=== PATIENT | female | born 1985 | race African-American/Black ===

== ENCOUNTER 2017-06-03 12:38 | Emergency (ER) | payer MEDICAID ==
[~2017-06-03] VITALS: Ht 162.6 cm; Wt 55.0 kg
[2017-06-03 12:41] VITALS: BP 114/63
[2017-06-03] MEDS ORDERED: ACETAMINOPHEN 325MG TABLET PO ONE (14:30)
== END 2017-06-03 15:50 | disposition home or self-care (01) ==
LOC: ER 13:26
DX: M79.674 Pain in right toe(s) (principal); M79.89 Other specified soft tissue disorders; J45.909 Unspecified asthma, uncomplicated; F12.10 Cannabis abuse, uncomplicated
CPT/HCPCS: 73660; 81025; 99284

== ENCOUNTER 2018-02-02 21:49 | Emergency (ER) | payer MEDICAID, OTHER ==
[~2018-02-02] VITALS: Ht 162.6 cm; Wt 57.0 kg
[2018-02-03] MEDS ORDERED: ACETAMINOPHEN 325MG TABLET PO PRN (03:30)
[2018-02-03 04:03] LABS: BASOPHILS % 0.6 % (0.0-2.0); EOSINOPHILS % 3.1 % (0.0-5.0); HEMATOCRIT. 38.3 % (36.0-48.0); HEMOGLOBIN. 12.7 g/dL (12.0-16.0); LYMPHOCYTES % 51.7 % (20.0-50.0); MEAN CORPUSCULAR HEMOGLOBIN 32.6 pg (28.0-32.0); MEAN CORPUSCULAR VOLUME 98.3 fL (81.0-99.0); MEAN PLATELET VOLUME 6.8 fl (7.4-10.4); NEUTROPHILS % 38.6 % (40.0-76.0); PLATELET 215 x1000/uL (130-400); RED BLOOD CELL COUNT 3.89 mill/uL (4.2-5.4)
[2018-02-03 04:09] LABS: CHLORIDE 110 mEq/L (98-107)
[2018-02-03 04:21] LABS: B-HCG QUANTITATIVE 705 mIU/mL (<3)
[2018-02-03 05:39] LABS: CLARITY URINE CLEAR (CLEAR); COLOR URINE YELLOW (YELLOW); KETONES URINE NEGATIVE (NEGATIVE); LEUKOCYTE ESTERASE URINE NEGATIVE (NEGATIVE); NITRITE URINE NEGATIVE (NEGATIVE); OCCULT BLOOD URINE 1+ (NEGATIVE); PROTEIN URINE NEGATIVE (NEGATIVE); SPECIFIC GRAVITY URINE 1.023 (1.005-1.030); UROBILINOGEN URINE 0.2 E.U./dL (0.2-1.0)
[2018-02-03 07:30] VITALS: BP 100/55
== END 2018-02-03 09:17 | disposition home or self-care (01) ==
LOC: ER 21:49
DX: O20.0 Threatened abortion (principal); Z3A.00 Weeks of gestation of pregnancy not specified; D25.9 Leiomyoma of uterus, unspecified; J45.909 Unspecified asthma, uncomplicated; Z88.6 Allergy status to analgesic agent; Z91.040 Latex allergy status
CPT/HCPCS: 36415; 76830; 76856; 80053; 81003; 81025; 84702; 85025; 86850; 86900; 99285

== ENCOUNTER 2018-10-01 11:24 | Emergency (ER) | payer MEDICAID, OTHER ==
[~2018-10-01] VITALS: Ht 167.6 cm; Wt 55.0 kg
[2018-10-01] MEDS ORDERED: TETANUS, DIPHTHERIA, PERTUSSIS VAC/PF 0.5ML (>7YR OLD) IM ONE (14:45)
[2018-10-01 15:51] VITALS: BP 112/62
== END 2018-10-01 15:52 | disposition home or self-care (01) ==
LOC: ER 11:24
DX: S61.451A Open bite of right hand, initial encounter (principal); S19.9XXA Unspecified injury of neck, initial encounter; M54.5 Low back pain; J45.909 Unspecified asthma, uncomplicated; F12.10 Cannabis abuse, uncomplicated; Z88.6 Allergy status to analgesic agent; Z91.040 Latex allergy status; Y04.1XXA Assault by human bite, initial encounter; Y93.89 Activity, other specified; Y92.89 Other specified places as the place of occurrence of the external cause; Y99.8 Other external cause status
CPT/HCPCS: 90715; 99283

== ENCOUNTER 2019-11-16 09:36 | Emergency (ER) | payer OTHER ==
[~2019-11-16] VITALS: Ht 162.6 cm; Wt 57.0 kg
[2019-11-16 09:43] VITALS: BP 108/69
[2019-11-16] MEDS ORDERED: TRAMADOL 50MG TABLET PO ONE (10:00)
== END 2019-11-16 10:56 | disposition home or self-care (01) ==
LOC: ER 09:36
DX: M25.571 Pain in right ankle and joints of right foot (principal); M54.5 Low back pain; G89.11 Acute pain due to trauma; V43.52XD Car driver injured in collision with other type car in traffic accident, subsequent encounter; Y93.89 Activity, other specified; Y92.410 Unspecified street and highway as the place of occurrence of the external cause
CPT/HCPCS: 73610; 73630; 99284

== ENCOUNTER 2021-12-23 19:58 | Emergency (ER) | payer OTHER ==
[~2021-12-23] VITALS: Ht 162.6 cm; Wt 55.0 kg
[2021-12-23 20:30] VITALS: BP 129/84
== END 2021-12-24 02:29 | disposition home or self-care (01) ==
LOC: ER 19:58
DX: R50.9 Fever, unspecified (principal); J45.909 Unspecified asthma, uncomplicated; F12.10 Cannabis abuse, uncomplicated; Z98.890 Other specified postprocedural states; Z20.822 Contact with and (suspected) exposure to COVID-19
CPT/HCPCS: 87426; 87804; 99283; C9803

== ENCOUNTER 2024-03-23 14:22 | Emergency (ER) | payer OTHER ==
[~2024-03-23] VITALS: Ht 162.6 cm; Wt 53.0 kg
[2024-03-23 14:25] VITALS: O2SAT 99
[2024-03-23 14:33] VITALS: PULSE 82; O2SAT 100
[2024-03-23 15:30] VITALS: BP 117/70; RESP 16; TEMP 98
[2024-03-23] MEDS: LIDOCAINE 5% PATCH TOP SCH (15:30)
[2024-03-23] MEDS: ACETAMINOPHEN 325MG TABLET PO ONE (15:30)
[2024-03-23] MEDS ORDERED: CYCL5TAB MT (17:19)
== END 2024-03-23 19:12 | disposition home or self-care (01) ==
LOC: ER 14:22
DX: M25.562 Pain in left knee (principal); M54.9 Dorsalgia, unspecified; F12.10 Cannabis abuse, uncomplicated; J45.909 Unspecified asthma, uncomplicated; Z88.6 Allergy status to analgesic agent; Z91.040 Latex allergy status; V49.60XA Unspecified car occupant injured in collision with unspecified motor vehicles in traffic accident, initial encounter; Y93.89 Activity, other specified; Y92.89 Other specified places as the place of occurrence of the external cause; Y99.8 Other external cause status
CPT/HCPCS: 72070; 73502; 73562; 81025; 99284

== ENCOUNTER 2025-06-08 12:00 | Emergency (ER) | payer OTHER ==
[~2025-06-08] VITALS: Ht 162.6 cm; Wt 54.0 kg
[~2025-06-08 12:00] MED LIST: CYCL5TAB3 MT
[2025-06-08 12:15] VITALS: O2SAT 100
[2025-06-08] MEDS: LIDOCAINE 5% PATCH TOP SCH (13:14)
[2025-06-08] MEDS ORDERED: LIDO-53 TP (13:44)
[2025-06-08 14:02] VITALS: BP 113/42; PULSE 66; RESP 18; TEMP 36.7; O2SAT 99
== END 2025-06-08 14:03 | disposition home or self-care (01) ==
LOC: ER 12:00
DX: M43.6 Torticollis (principal); J45.909 Unspecified asthma, uncomplicated; Z91.040 Latex allergy status; Z88.6 Allergy status to analgesic agent
CPT/HCPCS: 99282